=== PATIENT | female | born 1955 | race Caucasian/White ===

== ENCOUNTER 2022-04-26 18:39 | Emergency (ER) | payer OTHER ==
[2022-04-26] MEDS ORDERED: Acetaminophen 500 MG TAB ONE (20:43)
[2022-04-26] MEDS ORDERED: Ibuprofen 200 MG TAB ONE (20:43)
== END 2022-04-26 21:16 | disposition home or self-care (01) ==
LOC: BURERS 18:39
DX: S52.122A Displaced fracture of head of left radius, initial encounter for closed fracture (principal); E07.9 Disorder of thyroid, unspecified; W18.30XA Fall on same level, unspecified, initial encounter; Y93.66 Activity, soccer; Z79.899 Other long term (current) drug therapy
CPT/HCPCS: 29105